=== PATIENT | female | born 1965 | race Caucasian/White ===

== ENCOUNTER → 2017-02-05 | Outpatient (CLI) | payer OTHER | LOC: FIMAGING 14:36 | PROVIDERS: ATTEND Internal Medicine | DX: Z12.31 Encounter for screening mammogram for malignant neoplasm of breast (principal) | CPT/HCPCS: G0202 ==

== ENCOUNTER → 2018-02-17 | Outpatient (CLI) | payer OTHER | LOC: FIMAGING 10:30 | PROVIDERS: ATTEND Radiology Diagnostic Radiology | DX: I83.893 Varicose veins of bilateral lower extremities with other complications (principal); I87.2 Venous insufficiency (chronic) (peripheral) ==

== ENCOUNTER → 2018-04-06 | Day surgery (SDC) | payer OTHER ==
[~2018-04-06] MED LIST: LIDO/EPI 1% **for epidural** 30 ML SDV ONE; SODIUM TETRADECYL SULFATE 3% 2 ML VIAL IV ONE
== END | disposition home or self-care (01) ==
LOC: FIMAGING 14:04
PROVIDERS: ATTEND Radiology Diagnostic Radiology
PROC: 3E033TZ Introduction of Destructive Agent into Peripheral Vein, Percutaneous Approach (ICD-10-PCS; principal; 2018-04-06)
PROC: 065Q3ZZ Destruction of Left Saphenous Vein, Percutaneous Approach (ICD-10-PCS; principal; 2018-04-06)
DX: I83.813 Varicose veins of bilateral lower extremities with pain (principal)

== ENCOUNTER 2018-04-09 10:52 | Day surgery (SDC) | payer OTHER ==
[2018-04-09] MEDS ORDERED: ONDANSETRON 4 MG/2 ML VIAL IVP ONE (11:33)
[2018-04-09] MEDS ORDERED: ceFAZolin 2 GM/DEXTROSE 100 ML IV ONE (11:33)
[2018-04-09] MEDS ORDERED: NS 1,000 ML IV ONE (11:33)
[2018-04-09] MEDS ORDERED: NALOXONE HCL 0.4 MG/ML INJ IVP PRN (11:33)
[2018-04-09] MEDS ORDERED: FLUMAZENIL 0.5 MG/5 ML MDV IVP PRN (11:33)
[2018-04-09] MEDS ORDERED: MIDAZOLAM 2 MG/2 ML VIAL IVP PRN (11:33)
[2018-04-09] MEDS ORDERED: fentaNYL 100 MCG/2 ML INJ IVP PRN (11:33)
[2018-04-09] MEDS ORDERED: LIDO/EPI 1% **for epidural** 30 ML SDV ONE (12:29)
[2018-04-09] MEDS ORDERED: SODIUM TETRADECYL SULFATE 3% 2 ML VIAL IV ONE (12:29)
--- NOTE | 2018-04-09 12:43 | PDPROPOC ---
Sedation Plan of Care Sedation Plan of Care: vital signs stable, mental status noted, patient educated of risks, benefits, alternatives, patient can tolerate sedation ASA Classification: ASA 1 Planned drugs: fentanyl, midazolam Mallampati Score: Class 1 Mallampati Reference Image: Patient passed 3-3-2 rule?: Yes
--- NOTE | 2018-04-09 12:43 | PDGENHP ---
History & Physical Chief Complaint: RLE VARICOSE VEINS History of Present Illness: PAIN AND SWELLING Pertinent Past, Social, Family History: NON SMOKER; TOLERATED LT LEG TREATMENT VERY WELL. Relevant Physical Exam: ROPEY VARICOSE VEINS RLE mapped out. Cardiorespiratory Assessment: rrr, cta
[2018-04-09] MEDS ORDERED: FLUMAZENIL 0.5 MG/5 ML MDV IVP ONE (12:44)
[2018-04-09] MEDS ORDERED: NALOXONE HCL 0.4 MG/ML INJ ONE (12:45)
[2018-04-09] MEDS ORDERED: fentaNYL 100 MCG/2 ML INJ ONE ×2 (12:45→14:18)
[2018-04-09] MEDS ORDERED: MIDAZOLAM 2 MG/2 ML VIAL ONE ×2 (12:45→14:19)
[2018-04-09] MEDS ORDERED: POLIDOCANOL 0.5% 2 ML AMP IV ONE (13:31)
[2018-04-09] MEDS ORDERED: ONDANSETRON 4 MG/2 ML VIAL IVP PRN (14:44)
[2018-04-09] MEDS ORDERED: HYDROCODONE/APAP 5/325 TAB PO PRN (14:44)
[2018-04-09] MEDS ORDERED: IBUPROFEN 200 MG TAB PO ONE (14:44)
[2018-04-09] MEDS ORDERED: ONDANSETRON DISINTEGRATING 4 MG TAB PO PRN (14:44)
[2018-04-09] MEDS ORDERED: NS 1,000 ML IV SCH (14:45)
--- NOTE | 2018-04-09 14:45 | PDRADPN ---
Radiology Procedure Note Date of Procedure: 04/09/18 Radiologist: Daniela Borjas Anesthesia: IV Sedation Pre-op Diagnosis: RLE VARICOSE VEINS Post-op Diagnosis: SAME Indication: PAIN AND SWELLING Procedure: LASER, PHLEBECTOMY, SCLEROTHERAPY Inf/Abcess present in the surg proc area at time of surgery?: No
[2018-04-09 17:49] VITALS: BP 120/58
== END 2018-04-09 18:25 | disposition home or self-care (01) ==
LOC: FIMAGING 10:52
PROVIDERS: ATTEND Radiology Diagnostic Radiology
DX: I83.813 Varicose veins of bilateral lower extremities with pain (principal); I83.893 Varicose veins of bilateral lower extremities with other complications; R22.43 Localized swelling, mass and lump, lower limb, bilateral
CPT/HCPCS: J0690; J2250; J2310; J3010